=== PATIENT | male | born 2000 | race Caucasian/White ===

== ENCOUNTER 2019-09-01 14:22 | Emergency (ER) | payer SELFPAY ==
[~2019-09-01] VITALS: Ht 162.6 cm; Wt 63.5 kg
[2019-09-01 14:26] VITALS: BP 113/70
--- NOTE | 2019-09-01 14:31 | NUR ---
influenza swab collected
[2019-09-01] MEDS ORDERED: ACETAMINOPHEN EXTRA STRENGTH 500 MG TAB PO ONE (14:35)
--- NOTE | 2019-09-01 14:42 | NUR ---
c/o bodyaches, headache, fatigue, and cough x yesterday denies n/.v/ d---full clear speech
--- NOTE | 2019-09-01 14:47 | NUR ---
covig-19 swab collected and handed to lab
[2019-09-01 15:25] VITALS: BP 127/87
--- NOTE | 2019-09-01 15:25 | NUR ---
Patient discharged with v/s stable. Written and verbal after care instructions given and explained. Patient alert, oriented and verbalized understanding of instructions. Ambulatory with steady gait. All questions addressed prior to discharge. ID band removed. Patient advised to follow up with PMD. Rx of tylenol xs, tamiflu given. Patient educated on indication of medication including possible reaction and side effects. Opportunity to ask questions provided and answered.
--- NOTE | 2019-09-02 21:10 | NUR ---
LAB CALLED INFORMING PT IS POSITIVE FOR COV2. ERMMandi LUTZ MADE AWARE AND HE DID CALLED THE PT. PT LAB RESULT WILL FORWARD TO THE INFECTION CONTROL BOX AND TO THE HOUSE [facility].
== END 2019-09-01 15:25 | disposition home or self-care (01) ==
LOC: MED 14:22 → EEVIPCON 14:22 → MED 15:25
DX: B34.9 Viral infection, unspecified (principal); Z20.828 Contact with and (suspected) exposure to other viral communicable diseases
CPT/HCPCS: 87804; 99283; C9803; U0003; 36415